=== PATIENT | female | born 1980 | race Caucasian/White ===

== ENCOUNTER 2016-05-30 10:38 | Inpatient (IN) | payer OTHER ==
[~2016-05-30] VITALS: Ht 154.9 cm; Wt 65.8 kg
[2016-05-30 10:44] VITALS: BP 111/75
[2016-05-30] MEDS ORDERED: NACL 0.9% 1,000 ML IV ONE ×2 (10:45→15:10)
--- NOTE | 2016-05-30 12:22 | NUR ---
PT WHEELCHAIR ASSISTED TO BED 5
--- NOTE | 2016-05-30 12:25 | NUR ---
PT PRESENTS TO ER W/ C/O LOWER ABDOMINAL PAIN x 5 DAYS. PT STATES PAIN IS CONSTANT W/PAIN SCALE 0F 9/10.PT STATES SHE VOMITTED 1X LAST NIGHT;DENIES CP/SOB/FEVER/COUGH AT THIS TIME;NO ACUTE DISTRESS NOTED;SKIN WARM TO TOUCH;UNLABORED BREATHING;HOB ELEVATED;NEEDS ATTENDED;SAFETY PRECAUTION INSTITUTED;MD MADE AWARE OF PT'S CONDITION.
[2016-05-30] MEDS ORDERED: KETOROLAC 60 MG/2 ML VIAL IM ONE (12:40)
--- NOTE | 2016-05-30 12:49 | NUR ---
Hector bradford in EDM - 05/30/16 at [address] PRIETO PT TAKEN OFF RESTRAINT, PT ASLEEP, NO AGRESSIVE BEHAVIOR NOTED AT THIS TIME, SPO2 100% ON ROOM AIR, HR 65, BP 155/79, RR 20
--- NOTE | 2016-05-30 13:06 | NUR ---
PT WENT TO XRAY CCOMPANIED BY COATING LINE WORKER;NO ACUTE DISTRESS NOTED.
--- NOTE | 2016-05-30 13:28 | NUR ---
.9 NS WAS CANCELLED BY ERMD.
[2016-05-30] MEDS ORDERED: ACETAMINOPHEN EXTRA STRENGTH 500 MG TAB PO ONE (13:30)
--- NOTE | 2016-05-30 13:38 | NUR ---
PT REFUSED TO TAKE TYLENOL.
--- NOTE | 2016-05-30 14:01 | NUR ---
US AT BEDSIDE
--- NOTE | 2016-05-30 15:22 | NUR ---
PT AMBULATES TO THE RESTROOM
--- NOTE | 2016-05-30 15:59 | NUR ---
Patient will be admitted to care of LETY ZEPEDA. Admited MS. Will go to room 119 B. Belongings list completed. Report to RODRIGO GONZALEZ.
[2016-05-30 16:35] VITALS: BP 113/72
--- NOTE | 2016-05-30 16:35 | NUR ---
PT ALERT AND ORIENTED X4. BREATHING EVENLY AND UNLABORED, NO SIGNS OF ACUTE DISTRESS. SKIN IS INTACT AND DRY. NO SIGNS OF ANY NAUSEA OR VOMITING. C/O MINIMAL ABDOMINAL PAIN /10. DENIES OF ANY BLADDER DISCOMFORT. ABLE TO PERFORM ADL'S INDEPENDENTLY. SAFETY PRECAUTIONS MAINTAINED. ORIENTED TO HOSPITAL ENVIRONMENT. CALL LIGHT WITHIN REACH.
[2016-05-30] MEDS ORDERED: PNEUMOCOCCAL VACCINE 23 MCG/0.5 ML VIAL IMVAC SCH (17:20)
[2016-05-30] MEDS ORDERED: INFLUENZA VIRUS VACCINE QUAD 0.5 ML SYR IMVAC SCH (17:20)
--- NOTE | 2016-05-30 17:29 | NUR ---
SPOKE WITH DR. Zane ZEPEDA. NEW MED ORDERS RECEIVED AND NPO EXCEPT MEDS DIET. NOTED AND CARRIED OUT.
[2016-05-30] MEDS: ONDANSETRON 4 MG/2 ML VIAL IVP PRN (17:40)
[2016-05-30] MEDS: HYDROmorphone 1 MG/ML AMP IVP PRN (17:40)
--- NOTE | 2016-05-30 18:58 | NUR ---
PT ALERT AND RESPONSIVE NO SIGNS OF ACUTE DISTRESS. ENDORSED TO ONCOMING BULL LADLE TENDER NURSE FOR CONTINUITY OF CARE.
--- NOTE | 2016-05-30 19:13 | NUR ---
Patient's Plan of Care was discussed and reviewed with BUSINESS AND SERVICES INSTRUCTOR: Rae ORTIZ
[2016-05-30 20:00] VITALS: BP 113/70
--- NOTE | 2016-05-30 20:00 | NUR ---
PATIENT IS CURRENTLY RESTING IN BED IVF INFUSING WELL IV SITE PATIENT. PATIENT COMPLAINS OF PRESSURE TO LOWER ABDOMEN I OFFERED PAIN MEDICATION AND I ALSO EXPLAINED THAT PAIN MEDICATION IS NEEDED FOR HER PATIENT ASSISTED TO THE BATHROOM NEEDED,
[2016-05-31] VITALS: BP 117/75
--- NOTE | 2016-05-31 00:20 | NUR ---
PATIENT IS RESTING IN BED IVF INFUSING WELL IV SITE PATENT.PT COMPLAINS OF PRESSURE TO HER LOWER ABDOMEN I OFFERED SOME PAIN MEDICATION BUT PATIENT IS REFUSING PT STATES,"I WILL LET YOU KNOW WHEN I NEED PAIN MEDICATION." CALL LIGHT WITHIN REACH WILL CONTINUE TO MONITOR.
--- NOTE | 2016-05-31 04:33 | NUR ---
PATIENT IS CURRENTLY AWAKE ALERT ORIENTED ASSISTED TO THE BATHROOM AND BACK TO BED,PT COMPLAINS OF FEELING PRESSURE TO HER LOWER ABDOMEN AND I KEEP OFFERING PAIN MEDICATION. BUT PATIENT REFUSES TO RECEIVE PAIN MEDICATION.PATIENT WANTED SOME WARM BLANKET AND I GAVE HER 2 WARM BLANKETS REQUESTED.CALL LIGHT WITHIN REACH WILL CONTINUE TO MONITOR.
[2016-05-31] MEDS: HYDROmorphone 1 MG/ML AMP IVP PRN (06:47)
--- NOTE | 2016-05-31 07:32 | NUR ---
PT STABLE REPORT ENDORSED TO CARLOS CALL.
--- NOTE | 2016-05-31 07:34 | NUR ---
RECEIVED REPORT FROM NIGHT RN. PT RESTING IN BED. NO S/S OF ACUTE DISTRESS. AAOX4. PT STATES PAIN IS 5/10. PT PREVIOUSLY MEDICATED. PT REPOSITIONED. IV SITE PATENT AND INTACT. CALL LIGHT WITHIN REACH. SAFETY MEASURES ENSURED. WILL CONTINUE TO MONITOR.
[2016-05-31 07:47] VITALS: BP 105/66
--- NOTE | 2016-05-31 08:58 | NUR ---
PATIENT HAS BEEN SCREENED AND CATEGORIZED LOW NUTRITION RISK. PATIENT WILL BE SEEN WITHIN 7 DAYS OF ADMISSION. 06/06/[address]
--- NOTE | 2016-05-31 09:38 | NUR ---
PT RESTING IN BED. NO S/S OF ACUTE DISTRESS. PT DENIES PAIN AT THIS TIME. CALL LIGHT WITHIN REACH. SAFETY MEASURES ENSURED. WILL CONTINUE TO MONITOR.
[2016-05-31] MEDS ORDERED: MAG SULF 2000 MG/WATER PREMIX 50 ML IV ONE (11:05)
--- NOTE | 2016-05-31 11:38 | NUR ---
PT RESTING IN BED. NO S/S OF ACUTE DISTRESS. PT DENIES PAIN. CALL LIGHT WITHIN REACH. SAFETY MEASURES ENSURED. FAMILY AT BEDSIDE. WILL CONTINUE MONITOR.
--- NOTE | 2016-05-31 13:57 | NUR ---
PT TAKEN OFF UNIT FOR OR.
[2016-05-31] MEDS ORDERED: MORPHINE SULFATE 4 MG/ML SYR ONE (13:58)
[2016-05-31] MEDS ORDERED: MIDAZOLAM 2 MG/2 ML VIAL ONE (13:58)
[2016-05-31] MEDS ORDERED: fentaNYL 0.05 MG/ML VIAL ONE (13:58)
[2016-05-31] MEDS ORDERED: GLYCOPYRROLATE 0.2 MG/ML VIAL IV ONE (14:00)
[2016-05-31] MEDS ORDERED: ROCURONIUM 50 MG/5 ML VIAL IV ONE (14:00)
[2016-05-31] MEDS ORDERED: ONDANSETRON 4 MG/2 ML VIAL IVP ONE (14:00)
[2016-05-31] MEDS ORDERED: NEOSTIGMINE 1:1000 10 MG/10 ML VIAL IV ONE (14:00)
[2016-05-31] MEDS ORDERED: KETOROLAC 60 MG/2 ML VIAL IM ONE (14:00)
[2016-05-31] MEDS ORDERED: SUCCINYLCHOLINE CHLORIDE 200 MG/10 ML VIAL IV ONE (14:00)
[2016-05-31] MEDS ORDERED: DESFLURANE 240 ML BTL INH ONE (14:00)
[2016-05-31] MEDS ORDERED: ceFAZolin 1,000 MG VIAL IV ONE (14:00)
[2016-05-31] MEDS ORDERED: PROPOFOL 200 MG/20 ML VIAL IV ONE (14:00)
[2016-05-31] MEDS ORDERED: ceFAZolin 1,000 MG VIAL ONE (14:06)
[2016-05-31] MEDS ORDERED: BUPIVACAINE-MPF/EPI 0.5% 30 ML VIAL INJ ONE (14:18)
[2016-05-31] MEDS ORDERED: MORPHINE SULFATE 4 MG/ML SYR IVP PRN ×2 (15:00)
[2016-05-31] MEDS ORDERED: METOCLOPRAMIDE 10 MG/2 ML INJ VIAL IVP PRN (15:00)
[2016-05-31] MEDS ORDERED: MIDAZOLAM 2 MG/2 ML VIAL IV ONE (15:00)
[2016-05-31] MEDS ORDERED: MORPHINE SULFATE 2 MG/ML SYR IVP PRN (15:00)
[2016-05-31 16:07] VITALS: BP 114/70
--- NOTE | 2016-05-31 16:07 | NUR ---
PT BACK ON UNIT. NO S/S OF ACUTE DISTRESS. PT DENIES PAIN. DRESSING TO LOWER ABDOMEN DRY AND INTACT. VSS. IV SITE PATENT AND INTACT. FAMILY AT BEDSIDE. WILL CONTINUE TO MONITOR.
--- NOTE | 2016-05-31 19:10 | NUR ---
ENDORSED PLAN OF CARE TO NIGHT DIRECTOR OF FIELD SALES. PT REMAINS IN STABLE CONDITION.
--- NOTE | 2016-05-31 19:11 | NUR ---
PATIENT IS CURRENTLY AWAKE ALERT ORIENTED RESTING IN BED DENIES PAIN OR DISCOMFORT AT THIS TIME DRESSING TO LOWER ABDOMEN IS CURRENTLY DRY AND INTACT.PT CONTINUES TO WEAR HER SCD'S TO BOTH LOWER LEGS.PT HAS A CLEAR LIQUID DIET BUT PATIENT IS TAKING SMALL SIPS AT A TIME.PATIENT STATES,"I DON'T FEEL NAUSEATED BUT IM NOT TOO HUNGRY EITHER I WILL EAT WHAT I CAN FOR NOW." PATIENT ENCOURAGED TO START OF WITH SIPS AND INCREASE SHE CAN TOLERATE AND TO REPORT ANY PAIN OR FEELING OF N/V PATIENT VERBALIZES UNDERSTANDING.
--- NOTE | 2016-05-31 19:29 | NUR ---
Patient's Plan of Care was discussed and reviewed with PRODUCTION SUPERVISOR: JEFFREY.
--- NOTE | 2016-05-31 21:30 | NUR ---
I MADE ROUNDS CHECKED ON THE PATIENT AND SHE IS RESTING COMFORTABLY IN BED, I ASKED THE PATIENT IS SHE IS IN PAIN PT STATES SHE HAS SOME DISCOMFORT TO HER LOWER ABDOMEN ABOUT 3-06/09 I OFFERED PAIN MEDICATION,PATIENT STATES,"NO IM FINE."PT REFUSED PAIN MEDICATION EDUCATION GIVEN ON THE IMPORTANCE TO RECEIVE PAIN MEDICATION TO CONTROL HER PAIN AND ALLEVIATE HER PAIN AND DISCOMFORT.PT STATES,"I WILL LET YOU KNOW IF I NEED ANY PAIN MEDICATION."WILL CONTINUE TO MONITOR.CALL LIGHT WITHIN REACH.
--- NOTE | 2016-06-01 00:35 | NUR ---
PATIENT IS CURRENTLY AWAKE RESTING IN BED.I ASKED THE PATIENT IS SHE IS HAVING ANY PAIN PT STATES,"A LITTLE DISCOMFORT." I OFFERED PAIN MEDICATION BUT PT REFUSES AT THIS TIME TO RECEIVE PAIN MEDICATION.PATIENT EDUCATED ON THE IMPORTANCE TO RECEIVE PAIN MEDICATION TO HELP HER CONTROL AND RELIEVE HER PAIN.PATIENT VERBALIZES UNDERSTANDING BUT REFUSES PAIN MEDICATION FOR NOW. DRESSING TO LOWER ABDOMEN REMAINS DRY AND INTACT.KITCHEN CATHETER TO GRAVITY DRAINING WELL.PATIENT WANTED SOME HOT TEA,I GAVE THE PATIENT SOME WARM TEA AND BROUGHT FRESH WATER AND JELLO FOR HER TO EAT AND ENCOURAGED HER TO START WITH SIPS AND SHE CAN TOLERATE.PT VERBALIZES UNDERSTANDING AND DENIES ALSO ANY N/V.PT REQUESTED FOR WARM BLANKETS AND TWO WARM BLANKETS WERE GIVEN TO THE PATIENT. NEEDS CONTINUE TO BE MET.CALL LIGHT WITHIN REACH.
[2016-06-01 00:40] VITALS: BP 101/65
--- NOTE | 2016-06-01 03:10 | NUR ---
PT SLEEPING WELL IN NO DISTRESS WILL CONTINUE TO MONITOR.CALL LIGHT WITHIN REACH.
[2016-06-01] MEDS: HYDROmorphone 1 MG/ML AMP IVP PRN ×2 (04:47→12:12)
--- NOTE | 2016-06-01 05:56 | NUR ---
PATIENT IS CURRENTLY SLEEPING IN BED IN NO DISTRESS WILL CONTINUE TO MONITOR.CALL LIGHT WITHIN REACH.
--- NOTE | 2016-06-01 06:05 | NUR ---
I CALLED RESPIRATORY THERAPIST AZUL TO REMIND HIM THAT PATIENT NEEDS INCENTIVE SPIROMETER HE SAID HE WILL COME SOON HE CAN.
--- NOTE | 2016-06-01 07:02 | NUR ---
RECEIVED REPORT FROM NIGHT RN. PT RESTING IN BED. NO S/S OF ACUTE DISTRESS. AAOX4. DRESSING TO ABDOMEN DRY AND INTACT. IV SITE PATENT AND INTACT. PT DENIES PAIN AT THIS TIME. KITCHEN CATHETER PATENT. CALL LIGHT WITHIN REACH. SAFETY MEASURES ENSURED. WILL CONTINUE TO MONITOR.
[2016-06-01 07:38] VITALS: BP 98/61
--- NOTE | 2016-06-01 10:30 | NUR ---
PT RESTING IN BED. NO S/S OF ACUTE DISTRESS. PT DENIES PAIN. CALL LIGHT WITHIN REACH. SAFETY MEASURES ENSURED. WILL CONTINUE TO MONITOR.
--- NOTE | 2016-06-01 12:07 | NUR ---
KITCHEN CATHETER DISCONTINUED PER DR. ZEPEDA. PT STATES PAIN IS 9/10. WILL MEDICATE ORDERED. BP 108/66. NO S/S OF ACUTE DISTRESS. WILL CONTINUE TO MONITOR.
--- NOTE | 2016-06-01 13:38 | NUR ---
PT UP AMBULATING TO BATHROOM TO VOID.
[2016-06-01 16:00] VITALS: BP 112/68
--- NOTE | 2016-06-01 16:36 | NUR ---
PT UP AND AMBULATING IN [place]. NO S/S OF ACUTE DISTRESS. PT DENIES PAIN. CALL LIGHT WITHIN REACH. SAFETY MEASURES ENSURED. WILL CONTINUE TO MONITOR.
[2016-06-01] MEDS: ONDANSETRON 4 MG/2 ML VIAL IVP PRN (18:15)
--- NOTE | 2016-06-01 19:16 | NUR ---
ENDORSED PLAN OF CARE TO NIGHT RN. PT REMAINS IN STABLE CONDITION.
--- NOTE | 2016-06-01 19:17 | NUR ---
PATIENT IS CURRENTLY RESTING IN BED CONTINUE TO HAVE SCD'S IN PLACE,DRESSING TO LOWER ABDOMEN DRY AND INTACT,PATIENT DENIES PAIN AT THIS TIME AND DENIES ANY NAUSEA OR VOMITING.FAMILY AT BEDSIDE CALL LIGHT WITHIN REACH WILL CONTINUE TO MONITOR.
--- NOTE | 2016-06-01 20:10 | NUR ---
Patient's Plan of Care was discussed and reviewed with SUSHI CHEF: COSMO ORTIZ
[2016-06-01] MEDS: HYDROcodone/APAP 5/325 MG 1 TAB TAB PO PRN (20:15)
--- NOTE | 2016-06-01 20:15 | NUR ---
PATIENT COMPLAINS OF MODERATE PAIN AND PATIENT WAS MEDICATED ORDERED FOR MODERATE PAIN.WILL REASSESS.
[2016-06-01] MEDS: SIMETHICONE 80 MG TAB.CHEW PO PRN (20:18)
--- NOTE | 2016-06-01 20:18 | NUR ---
PATIENT COMPLAINS OF FEELING GAS PAIN TO HER STOMACH.I MEDICATED THE PATIENT WITH MYLICON FOR GAS AND I ENCOURAGED AMBULATION AND TO CONTINUE TO DRINK PLENTY OF FLUIDS.PT VERBALIZES UNDERSTANDING.CALL LIGHT WITHIN REACH.
--- NOTE | 2016-06-01 21:05 | NUR ---
PATIENT AMBULATING IN HALLWAY AND TOLERATING ACTIVITY WELL.
--- NOTE | 2016-06-01 22:07 | NUR ---
PATIENT IS CURRENTLY USING THE INCENTIVE SPIROMETER AND DOING BREATHING EXERCISES. I ALSO TOOK A PICTURE OF PATIENT'S LOWER ABDOMEN INCISION IT HAS RAKESH.SURGICAL INCISION IS CURRENTLY DRY AND INTACT NO ACTIVE BLEEDING NOTED.SURGICAL INCISION COVERED WITH A PERIPAD AND PATIENT WAS GIVEN AND ASSISTED TO PUT ON A MESH UNDERWEAR.CALL LIGHT WITHIN REACH.
--- NOTE | 2016-06-01 22:35 | NUR ---
PATIENT WAS ABLE TO SIT IN THE CHAIR AND PATIENT STATES,"I WOULD LIKE TO EAT A LITTLE BIT." PATIENT ENCOURAGED TO CALL FOR ASSISTANCE IF SHE NEEDS ASSISTANCE GETTING BACK IN BED.WILL CONTINUE TO MONITOR.
--- NOTE | 2016-06-02 00:15 | NUR ---
PATIENT IS CURRENTLY RESTING IN BED I ASKED IF SHE IS IN PAIN AND WOULD LIKE PAIN MEDICATION PT STATES,"NO IM OK I DON'T WANT PAIN MEDICATION AT THIS TIME I WILL LET YOU KNOW."PATIENT CONTINUE TO HAVE SCD'S CURRENTLY IN PLACE.CALL LIGHT WITHIN REACH.
[2016-06-02 00:25] VITALS: BP 99/67
[2016-06-02] MEDS: HYDROcodone/APAP 5/325 MG 1 TAB TAB PO PRN ×2 (03:15→10:34)
--- NOTE | 2016-06-02 04:04 | NUR ---
PATIENT IS CURRENTLY RESTING IN BED SLEEPING WILL CONTINUE TO MONITOR.CALL LIGHT WITHIN REACH.
--- NOTE | 2016-06-02 07:22 | NUR ---
PATIENT AWAKE ALERT REPORT ENDORSED TO CARLOS LAU AT BEDSIDE.
--- NOTE | 2016-06-02 07:28 | NUR ---
RECEIVED PT IN BED. ALERT, AWAKE, ORIENTEDX4. BREATHING EVEN AND UNLABORED. DENIES ANY PAIN OR DISCOMFORT NOTED AT THIS TIME. POSITIVE BOWEL SOUNDS NOTED ON FOUR QUADRANTS. PT AMBULATORY. SAFETY PRECAUTION IN PLACE. CALL LIGHT WITHIN REACH.
[2016-06-02 08:00] VITALS: BP 98/62
[2016-06-02] MEDS: SIMETHICONE 80 MG TAB.CHEW PO PRN ×2 (08:23→18:04)
--- NOTE | 2016-06-02 15:30 | NUR ---
PT COMPLAINED OF DIZZINESS WHILE AMBULATING ALONG THE HALLWAY. ASSISTED TO BED SAFELY AND COMFORTABLY. VITAL SIGNS STABLE. DENIES ANY PAIN. PAGED DR. ZEPEDA.
--- NOTE | 2016-06-02 15:53 | NUR ---
EFRAIN UNGER OF [facility] MADE ONSITE VISIT AT 10:00 AM THIS MORNING AND GAVE HER A CLINICAL UPDATE ON THE PATIENT AND FAXED THE H&P AND OPERATIVE REPORT TO [facility] FAX# [phone] PH# [place] [phone]
[2016-06-02 16:00] VITALS: BP 93/58
--- NOTE | 2016-06-02 16:15 | NUR ---
DR. ZEPEDA CALLED BACK, UPDATED WITH PT. STATED HE WILL COME TO SEE PT AILYN.
[2016-06-02] MEDS ORDERED: MOTRIN400 MG PO (17:03)
[2016-06-02] MEDS ORDERED: MYLICON40 MG/0.1 PO (17:04)
[2016-06-02] MEDS ORDERED: IBUPROFEN 800 MG TAB PO SCH (18:20)
--- NOTE | 2016-06-02 19:15 | NUR ---
PT DISCHARGE INSTRUCTION GIVEN, SIGNED PAPER. PHOTOS TAKEN AND DOCUMENTED. WHEELED OUT ASSISTED ON STABLE CONDITION.
== END 2016-06-02 19:15 | disposition home or self-care (01) | DRG 513 ==
LOC: MED 10:38 → MTU 15:34
PROVIDERS: ADMIT Obstetrics & Gynecology; ATTEND Obstetrics & Gynecology
PROC: 0UT10ZZ Resection of Left Ovary, Open Approach (ICD-10-PCS; principal; 2016-06-01)
DX: N83.202 Unspecified ovarian cyst, left side (principal); D25.9 Leiomyoma of uterus, unspecified; K59.00 Constipation, unspecified; M79.7 Fibromyalgia